=== PATIENT | female | born 1985 | race Caucasian/White ===

== ENCOUNTER 2017-02-20 09:07 | Observation (INO) | payer BC, OTHER ==
[2017-02-20 12:53] LABS: HEMOGLOBIN 13.8 gm/dl (12.3-15.3); RED BLOOD COUNT 4.81 M/UL (4.00-5.10); WHITE BLOOD COUNT 17.7 K/UL (4.5-11.0)
[2017-02-20 13:47] LABS: BUN/CREATININE RATIO 8 (0-10)
[2017-02-23 07:33] LABS: ACINETOBACTER BAUMANNII Not Detected (Negative); CANDIDA ALBICANS Not Detected (Negative); CANDIDA KRUSEI Not Detected (Negative); CANDIDA TROPICALIS Not Detected (Negative); ENTEROCOCCUS Not Detected (Negative); ESCHERICHIA COLI Not Detected (Negative); HAEMOPHILUS INFLUENZAE Not Detected (Negative); KLEBSIELLA OXYTOCA Not Detected (Negative); KLEBSIELLA PNEUMONIAE Not Detected (Negative); KPC-CARBAPENEM-RESISTANCE GENE Not Detected (Negative); PROTEUS Not Detected (Negative); PSEUDOMONAS AERUGINOSA Not Detected (Negative); SERRATIA MARCESANS Not Detected (Negative); STAPHYLOCOCCUS AUREUS Not Detected (Negative); STREP AGALACTIAE (GROUP B) Not Detected (Negative); STREP PYOGENES (GROUP A) Not Detected (Negative); STREPTOCOCCUS Not Detected (Negative); vanA/B (VANCOMYCIN RESIST GENE Not Detected (Negative)
[2017-02-23 07:49] LABS: STAPHYLOCOCCUS DETECTED (Negative); mecA (METHICILLIN RESIST GENE DETECTED (Negative)
== END 2017-02-21 09:48 | disposition home or self-care (01) ==
LOC: ER1 09:07 → ZEROF 14:50 → OB 20:12
PROVIDERS: Emergency Medicine; ADMIT Obstetrics & Gynecology
DX: O26.832 Pregnancy related renal disease, second trimester (principal); N20.0 Calculus of kidney; O99.352 Diseases of the nervous system complicating pregnancy, second trimester; G43.909 Migraine, unspecified, not intractable, without status migrainosus; Z79.899 Other long term (current) drug therapy; Z3A.19 19 weeks gestation of pregnancy; Z88.8 Allergy status to other drugs, medicaments and biological substances
CPT/HCPCS: 36415; 80053; 81001; 83605; 83690; 84702; 85025; 87040; 87077; 87086; 87150; 87186; 96360; 96361; 96365; 96375; 99284; G0378; J0696; J1200; J2765; J7120

== ENCOUNTER 2017-02-23 06:46 | Outpatient (CLI) | payer BC, OTHER ==
[2017-02-23 08:37] LABS: HEMOGLOBIN 13.5 gm/dl (12.3-15.3); RED BLOOD COUNT 4.75 M/UL (4.00-5.10)
[2017-02-23 08:53] LABS: WHITE BLOOD COUNT 9.1 K/UL (4.5-11.0)
== END 2017-02-23 10:23 | disposition home or self-care (01) ==
LOC: GENOP 06:46
PROVIDERS: Obstetrics & Gynecology
DX: O46.92 Antepartum hemorrhage, unspecified, second trimester (principal); Z3A.20 20 weeks gestation of pregnancy
CPT/HCPCS: 36415; 81001; 85025; G0463

== ENCOUNTER 2021-07-09 08:16 | Outpatient (CLI) | payer BC, OTHER | END 2021-07-09 11:55 | disposition home or self-care (01) | LOC: GENOP 08:16 | PROVIDERS: Obstetrics & Gynecology | DX: O99.891 Other specified diseases and conditions complicating pregnancy (principal); R10.30 Lower abdominal pain, unspecified; R39.198 Other difficulties with micturition; Z3A.21 21 weeks gestation of pregnancy | CPT/HCPCS: 80307; 81001; 87086; 96360; 96361; J0696; J7120 ==

== ENCOUNTER → 2021-10-26 | Outpatient (CLI) | payer BC, OTHER ==
[~2021-10-26] MED LIST: BUSPIRONE HCL15 MG PO; COLACE100 MG PO; FAMOTIDINE20 MG PO; HEMOCYTE324 MG PO; PERCOCET 5/325 T1 EA PO; ZYRTEC10 MG PO
[2021-10-26 10:58] LABS: HEMOGLOBIN 14.3 gm/dl (12.3-15.3); RED BLOOD COUNT 5.12 M/UL (4.00-5.10); WHITE BLOOD COUNT 6.1 K/UL (4.5-11.0)
[2021-10-26 11:28] LABS: URINE TOTAL PROTEIN 37 mg/dl
[2021-10-27 12:37] LABS: BUN/CREATININE RATIO 9 (0-10)
== END ==
LOC: LAB 10:29
PROVIDERS: Obstetrics & Gynecology
DX: O10.919 Unspecified pre-existing hypertension complicating pregnancy, unspecified trimester (principal); Z3A.00 Weeks of gestation of pregnancy not specified
CPT/HCPCS: 80053; 83615; 84156; 84550; 85025; 85379; 85384; 85610; 85730

== ENCOUNTER → 2021-10-27 | Outpatient (CLI) | payer BC, OTHER ==
[2021-10-27 15:23] LABS: HEMOGLOBIN 12.5 gm/dl (12.3-15.3); WHITE BLOOD COUNT 7.5 K/UL (4.5-11.0)
[2021-10-27 15:26] LABS: RED BLOOD COUNT 4.53 M/UL (4.00-5.10)
[2021-10-27 15:57] LABS: BUN/CREATININE RATIO 11 (0-10)
== END ==
LOC: GENOP 14:16
PROVIDERS: Obstetrics & Gynecology
DX: Z01.812 Encounter for preprocedural laboratory examination (principal); U07.1 COVID-19; O24.919 Unspecified diabetes mellitus in pregnancy, unspecified trimester; O14.00 Mild to moderate pre-eclampsia, unspecified trimester; O44.40 Low lying placenta NOS or without hemorrhage, unspecified trimester
CPT/HCPCS: 36415; 80053; 81001; 85025; U0002

== ENCOUNTER 2021-10-28 05:36 | Inpatient (IN) | payer BC, OTHER ==
[~2021-10-28] VITALS: Ht 167.6 cm; Wt 108.0 kg
[2021-10-28] MEDS ORDERED: FAMOTIDINE20 MG PO (06:33)
[2021-10-28] MEDS ORDERED: BUSPIRONE HCL15 MG PO (06:33)
[2021-10-28] MEDS ORDERED: ZYRTEC10 MG PO (06:36)
[2021-10-29 04:25] LABS: HEMOGLOBIN 8.8 gm/dl (12.3-15.3)
[2021-10-29] MEDS ORDERED: PERCOCET 5/325 T1 EA PO (11:08)
[2021-10-29] MEDS ORDERED: COLACE100 MG PO (11:08)
[2021-10-29] MEDS ORDERED: HEMOCYTE324 MG PO (11:08)
== END 2021-10-29 14:30 | disposition home or self-care (01) | DRG 786 ==
LOC: OB 05:36
PROVIDERS: ADMIT Obstetrics & Gynecology
PROC: 3E0234Z Introduction of Serum, Toxoid and Vaccine into Muscle, Percutaneous Approach (ICD-10-PCS; 2021-10-28)
PROC: 10D00Z1 Extraction of Products of Conception, Low, Open Approach (ICD-10-PCS; principal; 2021-10-28 09:15)
DX: O13.4 Gestational [pregnancy-induced] hypertension without significant proteinuria, complicating childbirth (principal); U07.1 COVID-19; O98.52 Other viral diseases complicating childbirth; O99.354 Diseases of the nervous system complicating childbirth; F41.0 Panic disorder [episodic paroxysmal anxiety]; O99.344 Other mental disorders complicating childbirth; O71.6 Obstetric damage to pelvic joints and ligaments; J30.9 Allergic rhinitis, unspecified; O99.52 Diseases of the respiratory system complicating childbirth; O99.892 Other specified diseases and conditions complicating childbirth; O99.214 Obesity complicating childbirth; G89.29 Other chronic pain; E66.9 Obesity, unspecified; G43.909 Migraine, unspecified, not intractable, without status migrainosus; M54.50 Low back pain, unspecified; O14.04 Mild to moderate pre-eclampsia, complicating childbirth; O24.429 Gestational diabetes mellitus in childbirth, unspecified control; Z37.0 Single live birth; Z3A.37 37 weeks gestation of pregnancy; Z23 Encounter for immunization; Z83.2 Family history of diseases of the blood and blood-forming organs and certain disorders involving the immune mechanism; Z80.3 Family history of malignant neoplasm of breast
CPT/HCPCS: 36415; 82800; 82962; 85014; 85018; 90715; 97161; C9113; J0690; J1885; J2250; J2274; J2370; J2405; J2590; J3010; J3475; J7030; J7120

== ENCOUNTER → 2022-02-02 | Outpatient (CLI) | payer BC, OTHER ==
[2022-02-02 13:29] LABS: HEMOGLOBIN 12.4 gm/dl (12.3-15.3); RED BLOOD COUNT 5.35 M/UL (4.00-5.10); WHITE BLOOD COUNT 8.4 K/UL (4.5-11.0)
[2022-02-02 13:51] LABS: BUN/CREATININE RATIO 11 (0-10)
== END ==
LOC: OPSV2 11:49
PROVIDERS: Anesthesiology
DX: Z01.810 Encounter for preprocedural cardiovascular examination (principal)
CPT/HCPCS: 36415; 80048; 84703; 85025

== ENCOUNTER → 2022-02-20 | Outpatient (CLI) | payer BC, OTHER | LOC: KOH-I 13:11 | DX: M54.50 Low back pain, unspecified (principal); M41.86 Other forms of scoliosis, lumbar region | CPT/HCPCS: 72100 ==